=== PATIENT | male | born 1930 | race Caucasian/White ===

== ENCOUNTER → 2017-04-07 | Day surgery (SDC) | payer OTHER ==
[~2017-04-07] VITALS: Ht 162.6 cm; Wt 64.7 kg
[~2017-04-07] MED LIST: ASPEC81 PO; ATOR10TA82 PO; B 50 PO; CABE0.5T PO; CALCIUM D PO; CLOP1TAB15 PO; COSYNTROPIN INJ 1 MCG in SYRINGE 0 ML IV SCH; DRV100 PO; FERR1TAB13 PO; FISHOIL PO; HYDC25 PO; LSN25 PO; MAG PO; METO50TA16 PO; MULTI VIT; NTRGSL/4 SL; TEST5GEL TOP; ZINC1CAP PO
[2017-04-07 08:07] VITALS: BP 177/66; PULSE 57; TEMP 36.4; O2SAT 99; Ht 162.6 cm; Wt 64.7 kg
[2017-04-07 09:10] VITALS: BP 158/66
[2017-04-07 09:38] VITALS: BP 167/68
== END | disposition home or self-care (01) ==
LOC: C.MTU 07:40
PROVIDERS: ATTEND Internal Medicine Endocrinology, Diabetes & Metabolism
DX: R53.83 Other fatigue (principal)

== ENCOUNTER → 2017-08-01 | Outpatient (CLI) | payer OTHER ==
[~2017-08-01] MED LIST changes: -ATOR10TA82 PO; +ATOR10TA88 PO; -CLOP1TAB15 PO; -COSYNTROPIN INJ 1 MCG in SYRINGE 0 ML IV SCH; -DRV100 PO; -MULTI VIT
== END | disposition home or self-care (01) ==
LOC: C.LAB1850 15:30
PROVIDERS: ATTEND Internal Medicine Endocrinology, Diabetes & Metabolism
DX: E23.0 Hypopituitarism (principal)